=== PATIENT | female | born 2000 | race Caucasian/White ===

== ENCOUNTER 2018-01-08 10:00 | Emergency (ER) | payer BC ==
[2018-01-08 10:18] VITALS: BP 111/66
--- NOTE | 2018-01-08 10:24 | ED ---
Throat Pain/Nasal Congestion - HPI Summary HPI Summary: 17F presents with sinus congestion for the past week. She states she has an increase in sinus pressure. She admits to a sore throat. She states her glands feel swollen. She denies any cough. She denies any chest pain or shortness breath. Denies abdominal pain nausea vomiting diarrhea. She does not have a history of sinus infections. She does not have a history of allergies. She has tried Sudafed for her symptoms. She has no medical conditions. - History of Current Complaint Chief Complaint: UCRespiratory Time Seen by Provider: 01/08/18 10:09 - Allergies/Home Medications Allergies/Adverse Reactions: Allergies Allergy/AdvReac Type Severity Reaction Status Date / Time amoxicillin Allergy Severe Hives Verified 01/08/18 10:11 Home Medications: Home Medications Cetirizine HCl [Zyrtec] 10 mg PO DAILY 01/08/18 [History Confirmed 01/08/18] Desogestrel-Ethinyl Estradiol [Juleber 0.15-30 mg-Mcg] 1 tab PO DAILY 01/08/18 [ History Confirmed 01/08/18] PMH/Surg Hx/FS Hx/Imm Hx Endocrine/Hematology History: Denies: Hx Anticoagulant Therapy Cardiovascular History: Denies: Hx Congestive Heart Failure, Hx Hypertension, Hx Pacemaker/ICD, Other Cardiovascular Problems/Disorders Respiratory History: Denies: Hx Asthma, Hx Chronic Obstructive Pulmonary Disease (COPD), Other Respiratory Problems/Disorders - Surgical History Surgery Procedure, Year, and Place: [place] Infectious Disease History: No Infectious Disease History: Denies: History Other Infectious Disease, Traveled Outside the in Last 30 Days - Family History Known Family History: Negative: Respiratory Disease - Social History Alcohol Use: Weekly Substance Use Type: Reports: Marijuana Hx Tobacco Use: No Smoking Status (MU): Never Smoked Tobacco Type: eCigarettes Review of Systems Negative: Fever Positive: Sore Throat, Nasal Discharge Negative: Chest Pain Negative: Shortness Of Breath, Cough Positive: Headache All Other Systems Reviewed And Are Negative: Yes Physical Exam Triage Information Reviewed: Yes Vital Signs On Initial Exam: Initial Vitals Temp Pulse Resp BP Pulse Ox 97.7 F 90 18 111/66 98 01/08/18 10:12 01/08/18 10:12 01/08/18 10:12 01/08/18 10:12 01/08/18 10:12 Vital Signs Reviewed: Yes Appearance: Positive: Well-Appearing Skin: Positive: Warm, Dry Head/Face: Positive: Normal Head/Face Inspection Eyes: Positive: Normal, EOMI, JUMA, Conjunctiva Clear ENT: Positive: Pharynx normal, TMs normal, Sinus tenderness Neck: Positive: Supple, Nontender, No Lymphadenopathy Respiratory/Lung Sounds: Positive: Clear to Auscultation, Breath Sounds Present Cardiovascular: Positive: Normal, RRR Abdomen Description: Positive: Nontender, Soft Bowel Sounds: Positive: Present Musculoskeletal: Positive: Normal Neurological: Positive: Normal Psychiatric: Positive: Normal Diagnostics - Vital Signs Vital Signs Temp Pulse Resp BP Pulse Ox 01/08/18 10:12 97.7 F 90 18 111/66 98 - Laboratory Lab Statement: Any lab studies that have been ordered have been reviewed, and results considered in the medical decision making process. EENT Course/Dx - Course Course Of Treatment: 17F presents with sinus congestion for the past week. She states she has an increase in sinus pressure. She admits to a sore throat. She states her glands feel swollen. She denies any cough. She denies any chest pain or shortness breath. Denies abdominal pain nausea vomiting diarrhea. She does not have a history of sinus infections. She does not have a history of allergies. She has tried Sudafed for her symptoms. She has no medical conditions. On exam pharynx cobblestoning. No sinus tenderness present. Lungs clear to auscultation. Will treat her sinus infection with doxy due to allergy to penicillin. We'll prescribe Flonase. Patient understands agrees with plan. - Differential Diagnoses Differential Diagnoses: Pharyngitis, Sinusitis, URI/Bronchitis - Diagnoses Provider Diagnoses: Sinusitis Discharge - Sign-Out/Discharge Documenting (check all that apply): Discharge/Admit/Transfer - Discharge Plan Condition: Good Disposition: HOME Prescriptions: DOXYcycline CAP(*) [DOXYcycline 100MG CAP(*)] 100 mg PO BID #10 cap Fluticasone NASAL SPRAY 50MCG* [Flonase NASAL SPRAY 50MCG*] 2 spray BOTH NARES DAILY #1 btl Patient Education Materials: Sinusitis (ED) Referrals: [facility] [Outside] Additional Instructions: Use saline spray in nose as much as needed take antibiotic twice a day for 5 days, use sunscreen, can take with food Use intranasal steroid one spray each nostril twice a day Take Tylenol or ibuprofen for headache every 6 hours Take sudafed daily for nasal congestion Establish care with primary Return to ED if develop any new or worsening symptoms - Billing Disposition and Condition Condition: GOOD Disposition: HOME
== END 2018-01-08 10:45 | disposition home or self-care (01) ==
LOC: UCEAST 10:00
DX: J32.9 Chronic sinusitis, unspecified (principal); J02.9 Acute pharyngitis, unspecified; Z88.0 Allergy status to penicillin
CPT/HCPCS: 99202; G0463

== ENCOUNTER 2018-03-10 19:01 | Emergency (ER) | payer BC ==
--- NOTE | 2018-03-10 19:03 | UC ---
Throat Pain/Nasal Baldomero HPI - HPI Summary HPI Summary: 17 yo female presents with sore throat, headache, and swollen tonsils since yesterday. Today is much worse. Has felt feverish, but has not taken her temperature. Has been taking ibuprofen with mild relief. She is able to eat and drink, but has significant pain. No difficulties breathing. Denies sinus symptoms, cough, SOB, chest pain, n/v, or rash. - History of Current Complaint Stated Complaint: THROAT PAIN Time Seen by Provider: 03/10/18 19:03 Hx Obtained From: Patient Hx Last Menstrual Period: 1 week ago Onset/Duration: Sudden Onset Severity: Moderate Pain Intensity: 9 Pain Scale Used: 0-10 Numeric - Allergies/Home Medications Allergies/Adverse Reactions: Allergies Allergy/AdvReac Type Severity Reaction Status Date / Time amoxicillin Allergy Severe Hives Verified 01/14/18 14:19 Home Medications: Home Medications Ibuprofen [Advil Liqui-Gels] 03/10/18 [History] PMH/Surg Hx/FS Hx/Imm Hx - Additional Past Medical History Additional PMH: Seasonal allergies Previously Healthy: Yes Other History Of: Negative For: Anticoagulant Therapy - Surgical History Surgical History: Yes Surgery Procedure, Year, and Place: wisdom TEETH - Family History Known Family History: Positive: None Negative: Respiratory Disease - Social History Occupation: Student Lives: With Family Alcohol Use: Weekly Substance Use Type: Marijuana Smoking Status (MU): Never Smoked Tobacco Type: eCigarettes - Immunization History Most Recent Influenza Vaccination: 2013 Most Recent Tetanus Shot: up to date Vaccination Up to Date: Yes Review of Systems Constitutional: Fever Skin: Negative Eyes: Negative ENT: Sore Throat Respiratory: Negative Cardiovascular: Negative Gastrointestinal: Negative Neurovascular: Negative Musculoskeletal: Negative Neurological: Headache Psychological: Negative All Other Systems Reviewed And Are Negative: Yes Physical Exam - Summary Physical Exam Summary: GENERAL: NAD. WDWN. No pain distress. SKIN: No rashes, sores, lesions, or open wounds. HEENT: Head: AT/NC Eyes: Conjunctiva clear without inflammation or discharge. Ears: Hearing grossly normal. TMs intact, no bulging, erythema, or edema. Nose: Nasal mucosa pink and moist. NTTP maxillary and frontal sinus. Throat: Posterior oropharynx mild erythema and 3+ tonsillar enlargement. Mild exudates. Uvula midline. No hoarse voice or muffled voice. NECK: Supple. TTP tonsillar LAD. CHEST: CTAB. No r/r/w. No accessory muscle use. Breathing comfortably and in no distress. CV: RRR. Without m/r/g. Pulses intact. Brisk cap refill. NEURO: Alert. CN II-XII grossly intact. PSYCH: Age appropriate behavior. Triage Information Reviewed: Yes Vital Signs: Vital Signs: Temp Pulse Resp BP Pulse Ox 99.6 F 116 16 124/68 100 03/10/18 19:07 03/10/18 19:07 03/10/18 19:07 03/10/18 19:07 03/10/18 19:07 Laboratory Tests 03/10/18 19:18 Group A Strep Rapid Negative Vital Signs Reviewed: Yes Throat Pain/Nasal Course/Dx - Course Course Of Treatment: Strep test negative. Suspect tonsillitis. She was given her first dose of azithromycin in the clinic along with decadron 4mg due to tonsil edema. - Differential Dx/Diagnosis Provider Diagnoses: Tonsillitis Discharge - Sign-Out/Discharge Documenting (check all that apply): Patient Departure - Discharge Plan Condition: Stable Disposition: HOME Prescriptions: Azithromycin TAB* [Zithromax TAB (Z-DHRUV) 250 mg #6 tabs] 2 tab PO .TODAY, THEN 1 DAILY #1 dhruv Lidocaine 2% VISCOUS* [Xylocaine 2% Viscous*] 15 ml SWISH SWAL Q8H PRN #225 ml PRN Reason: Pain predniSONE TAB* [Deltasone 20 MG TAB*] 20 mg PO BID #10 tab Patient Education Materials: Tonsillitis (ED) Referrals: Julia Cox NP [Primary Care Provider] - Additional Instructions: If you develop a fever, shortness of breath, chest pain, new or worsening symptoms - please call your PCP or go to the ED. - Billing Disposition and Condition Condition: STABLE Disposition: Home
[2018-03-10 19:14] VITALS: BP 124/68
[2018-03-10] MEDS ORDERED: Dexamethasone TAB* 4 MG PO ONE (19:34)
[2018-03-10] MEDS ORDERED: Azithromycin TAB* 250 MG PO ONE (19:34)
== END 2018-03-10 19:44 | disposition home or self-care (01) ==
LOC: UCEAST 19:01
DX: J03.90 Acute tonsillitis, unspecified (principal); Z88.0 Allergy status to penicillin
CPT/HCPCS: 87651; 99212; A9270-GY; G0463; J8540

== ENCOUNTER 2018-08-19 17:40 | Emergency (ER) | payer BC ==
--- OUTSIDE RECORDS SUMMARY | 2018-08-19 17:45 | XMS REPORT | Continuity of Care Document ---
:2000 External Reference #:[id number] Author Name Julia Cox N.P. Address [address] [place] [id number] Care Team Providers Name Role Phone Julia Cox N.P. Care Team Information [facility] Unavailable Payers Type Date Identification Numbers Payment Provider Subscriber Effective: Policy Number: [id number] [facility] Ppo Xiomara Butler 2016 PayID: [id number] [address] [address] MAR[place] Bunch [phone] Advance Directives Description No Information Available Problems Date Description Provider Status Onset: 03/11/2017 Impacted third molar tooth Julia Cox, N.PYakelin Active Onset: 03/11/2017 Acne Julia Cox N.Dorothy Active Onset: 08/17/2018 Infectious mononucleosis Julia Cox N.PYakelin Active Family History Date Family Member(s) Problem(s) Comments Father Good Health Mother Good Health First Sister juvenile macular degenerative disease Second Sister Good Health Social History Type Date Description Comments Sex Unknown Education Currently working on bachelor's degree [employer] Tobacco Use Start: Unknown Patient has never smoked Allergies, Adverse Reactions, Alerts Date Description Reaction Status Severity Comments 03/11/2017 Penicillin Active Medications Medication Date Status Form Strength Qnty SIG Indications Ordering Provider IUD 08/17/20 Active Kenny 18 Julia, N.P. Minocycline HCL 03/11/20 Hx Capsules 75mg Ashford, 17 - Mashelle, 08/17/20 N.P. 18 Adapalene 03/11/20 Hx Gel 0.1% Ashford, 17 - Mashelle, 08/17/20 N.P. 18 Juleber 03/11/20 Hx Tablets 0.15-30mg-mc Kenny, 17 - g Masronnyle, 08/17/20 N.P. 18 Immunizations CPT Code Status Date Vaccine Lot # [id number] Given 09/04/2017 Influenza Vac, 3 Yrs & Older, Quadrivalent, Split, [id number] Im Use U-Flu Given 07/23/2016 Influenza (Non Billable) Unspecified U-MCV4 Given 05/10/2016 Meningococcal MCV4 (Non Billable) Unspecified U-HPV Given 01/31/2015 HPV (Non Billable) Unspecified U-HPV Given 09/27/2014 HPV (Non Billable) Unspecified U-HPV Given 07/26/2014 HPV (Non Billable) Unspecified 15324 Given 07/26/2014 Varicella (Chicken Pox) Immunization U-HepA Given 06/07/2011 Hepatitis A (Non Billable) Unspecified U-HepA Given 11/16/2010 Hepatitis A (Non Billable) Unspecified U-Menin Given 05/30/2010 Meningococcal (Non Billable) Unspecified 61005 Given 05/30/2010 Tdap (Adacel) Ages 7 And Above Only U-Polio Given 02/07/2004 Polio (Non Billable) Unspecified U-DTaP Given 02/07/2004 DTaP (Non Billable) Unspecified 08206 Given 02/07/2004 MMR Virus Immunization U-DTaP Given 06/30/2000 DTaP (Non Billable) Unspecified U-HIB Given 06/30/2000 Hib (Non Billable) Unspecified U-Polio Given 06/30/2000 Polio (Non Billable) Unspecified 69159 Given 03/27/2000 Varicella (Chicken Pox) Immunization 82897 Given 03/27/2000 MMR Virus Immunization U-HepB Given 12/27/1999 Hepatitis B (Non Billable) Unspecified U-HIB Given 06/12/1999 Hib (Non Billable) Unspecified U-DTaP Given 06/12/1999 DTaP (Non Billable) Unspecified U-Polio Given 04/10/1999 Polio (Non Billable) Unspecified U-HIB Given 04/10/1999 Hib (Non Billable) Unspecified U-DTaP Given 04/10/1999 DTaP (Non Billable) Unspecified U-Rotav Given 02/08/1999 Rotavirus (Non Billable) Unspecified U-Polio Given 02/08/1999 Polio (Non Billable) Unspecified U-HIB Given 02/08/1999 Hib (Non Billable) Unspecified U-HepB Given 02/08/1999 Hepatitis B (Non Billable) Unspecified U-DTaP Given 02/08/1999 DTaP (Non Billable) Unspecified U-HepB Given 1998 Hepatitis B (Non Billable) Unspecified Vital Signs Date Vital Result Comment 08/17/2018 11:03am Body Temperature 97.7 F Weight 143.00 lb Weight Percentile 73rd Heart Rate 70 /min BP Systolic 114 mmHg BP Diastolic 80 mmHg Height 67 inches 5'7" Height Percentile 86 % BMI (Body Mass Index) 22.4 kg/m2 Body Mass Index Percentile 58 % 03/11/2017 8:56am Body Temperature 98.1 F Weight 148.00 lb Weight Percentile 48th Heart Rate 66 /min BP Systolic 115 mmHg BP Diastolic 68 mmHg Height 66.8 inches 5'6.80" Height Percentile 18 % O2 % BldC Oximetry 99 % BMI (Body Mass Index) 23.3 kg/m2 Body Mass Index Percentile 66 % Results Test Date Facility Test Result H/L Range Note CBC with Auto Diff-fcmg 08/17/2018 [facility] WBC 9.4 K/uL 4.1-11.0 1 RBC 4.63 M/uL 4.00-5.40 Hemoglobin 13.9 gm/dL 12.0-16.0 Hematocrit 41.8 % 36.0-47.0 MCV 90.3 fL 80.0-97.0 MCH 30.0 pg 27.0-32.0 MCHC 33.2 g/dL 32.0-36.0 RDW 13.7 % 11.5-14.5 PLT Count 318 K/ul 140-400 MPV 7.9 FL 7.1-10.7 Neutrophil 67.1 % 35.0-75.0 Lymphocyte 23.6 % 16.0-52.0 Monocyte 7.8 % 2.0-10.0 Eosinophil 1.2 % 0.0-5.0 Basophil 0.3 % 0.0-4.0 Abs Neutrophils 6.3 K/uL 2.1-8.0 Abs Lymphocytes 2.2 K/uL 0.8-5.5 Abs Monocytes 0.7 K/uL 0.1-1.0 Abs Eosinophils 0.1 K/uL 0.0-0.5 Abs Basophils 0.0 K/uL 0.0-0.3 Comprehensive Met Panel-[facility]CMG 08/17/2018 [facility] Sodium 144 mmol/L 135- 146 2 Potassium 4.7 mmol/L 3.5-5.2 Chloride# 104 mmol/L 97-110 3 Carbon Dioxide 31 mmol/L 24-34 Glucose 95 mg/dL 70-105 BUN 16 mg/dL 6-26 Creatinine 0.5 mg/dL 0.5-1.4 Calcium 9.8 mg/dL 8.5-10.2 Total Protein 6.5 g/dL 6.0-8.0 Albumin 4.4 g/dL 3.6-4.9 Globulin 2.1 g/dL 2.0-3.5 A/G Ratio 2.1 Ratio 1.0-2.2 Total Bilirubin 0.5 mg/dL 0.1-1.3 Alkaline Phosphatase 71 U/L 24-140 Alt 4 U/L 3-42 Ast 13 U/L 8-42 Krystle Egfr >60 >60 4 Non Krystle Egfr >60 >60 5 Anion Gap 9 mmol/L 5-15 6 Laboratory test finding 08/17/2018 [facility] TSH 1.45 uIU/mL 0.35-4.94 1 This sample is drawn by:DL/CYCLE ANALYST 2 Updated reference range on new analyzer 3 Updated reference range on new analyzer 4 Concerning GFR Guidelines for Americans: Normal function or mild renal disease, if clinically at risk: >/=60 mL/min Moderately decreased: 30-59 Severely decreased: 15-29 Renal failure: <15 5 Concerning GFR Guidelines: Normal function or mild renal disease, if clinically at risk: >/=60 mL/min Moderately decreased: 30-59 Severely decreased: 15-29 Renal failure: <15 Glomerular Filtration Rate (GFR) is estimated based on the MDRD equation, which assumes a steady state for creatinine as recommended by the National Kidney Disease Education Program in conjunction with the National Institutes of Health and the National Kidney Foundation. Clinical conditions in which it may be necessary to measure GFR by using clearance methods include extremes of age and body size, severe malnutrition or obesity, diseases of skeletal muscle, paraplegia or quadriplegia, vegetarian diet, rapidly changing kidney function, and calculation of the dose of potentially toxic drugs that are excreted by the kidneys. 6 Updated Reference Range Procedures Description No Information Available Encounters Type Date Location Provider Dx Diagnosis Office Visit 03/11/2017 Julia Carroll, J30.2 Other seasonal 9:00a N.P. allergic rhinitis L70.0 Acne vulgaris Plan of Treatment 08/17/2018 - Julia Cox, N.P.R53.83 Other fatigueComments:most likely result of lifestylediscussed weight, inactivity, smoking, poor eating habits as contributors to fatiguestart MVI for women, importance of good sleep hygiene reviewedflu lab [id number] Other malaiseComments:flu lab [id number] Acute gastritis without bleedingComments:use zantac OTC and Mylanta prn before ingesting ibuprofen and caffeine at college.AllNew Medication:IUD -
[2018-08-19 17:48] VITALS: BP 110/68
--- NOTE | 2018-08-19 18:21 | UC ---
Throat Pain/Nasal Baldomero HPI - HPI Summary HPI Summary: 17-year-old female presents with onset of sore throat yesterday. States she noticed some white spots to her tonsils. Associated with some mild nasal congestion and postnasal drip. Denies fever, chills, ear pain, dysphasia, cough , chest pain, shortness of breath, abdominal pain, nausea, or vomiting. - History of Current Complaint Chief Complaint: UCGeneralIllness Stated Complaint: SORE THROAT Time Seen by Provider: 08/19/18 18:18 Hx Obtained From: Patient Hx Last Menstrual Period: unknown Pain Intensity: 6 - Allergies/Home Medications Allergies/Adverse Reactions: Allergies Allergy/AdvReac Type Severity Reaction Status Date / Time amoxicillin Allergy Severe Hives Verified 08/19/18 17:48 Home Medications: Home Medications Levonorgestrel (Iud) [Kyleena IUD] 17.5 mcg VAGINAL ONCE 08/19/18 [History Confirmed 08/19/18] PMH/Surg Hx/FS Hx/Imm Hx Previously Healthy: Yes - Denies significant PMH - Surgical History Surgical History: Yes Surgery Procedure, Year, and Place: wisdom TEETH - Family History Known Family History: Positive: Non-Contributory - Social History Occupation: Student Lives: With Family Alcohol Use: Weekly Substance Use Type: Marijuana Smoking Status (MU): Former Smoker Type: eCigarettes - Immunization History Most Recent Influenza Vaccination: 2013 Most Recent Tetanus Shot: up to date Vaccination Up to Date: Yes Review of Systems All Other Systems Reviewed And Are Negative: Yes Constitutional: Negative: Fever, Chills, Fatigue Skin: Negative: Rash Eyes: Negative: Drainage, Eye Redness ENT: Positive: Sore Throat, Sinus Congestion, Other - Post-nasal drip. Negative : Ear Ache, Nasal Discharge, Sinus Pain/Tenderness Respiratory: Negative: Shortness Of Breath, Cough Cardiovascular: Negative: Palpitations, Chest Pain Gastrointestinal: Negative: Abdominal Pain, Vomiting, Nausea Is Patient Immunocompromised?: No Physical Exam - Summary Physical Exam Summary: GENERAL APPEARANCE: Well developed, well nourished, alert and cooperative, and appears to be in no acute distress. EYES: Conjunctiva clear. No discharge. Vision is grossly intact. EARS: External auditory canals and tympanic membranes clear, hearing grossly intact. NOSE: Mild nasal congestion. No nasal discharge. THROAT: Mild pharyngeal erythema. 1+ tonsils without exudate. Oral cavity normal. Teeth and gingiva in good general condition. NECK: Neck supple, non-tender. Anterior cervical lymphadenopathy noted. CARDIAC: Normal S1 and S2. No S3, S4 or murmurs. Rhythm is regular. There is no peripheral edema, cyanosis or pallor. Extremities are warm and well perfused. Capillary refill is less than 2 seconds. LUNGS: Clear to auscultation and percussion without rales, rhonchi, wheezing or diminished breath sounds. ABDOMEN: Positive bowel sounds. Soft, nondistended, nontender. No guarding or rebound. No masses or hepatosplenomegally. MUSKULOSKELETAL: ROM intact to all extremities. No joint erythema or tenderness. Normal muscular development. Normal gait. SKIN: Skin normal color, texture and turgor with no lesions or eruptions. Triage Information Reviewed: Yes Vital Signs: Initial Vital Signs Temp 98.9 F 08/19/18 17:43 Pulse 119 08/19/18 17:43 Resp 18 08/19/18 17:43 BP 110/68 08/19/18 17:43 Pulse Ox 100 08/19/18 17:43 Vital Signs Reviewed: Yes Diagnostics - Laboratory Diagnostic Studies Completed/Ordered: Rapid strep negative. Throat Pain/Nasal Course/Dx - Course Course Of Treatment: 17-year-old female presents with onset of sore throat yesterday. States she noticed some white spots to her tonsils. Associated with some mild nasal congestion and postnasal drip. Denies fever, chills, ear pain, dysphasia, cough, chest pain, shortness of breath, abdominal pain, nausea , or vomiting. Afebrile. She was noted have some tachycardia on her initial vital signs however time of exam heart rate was within normal limits and other vitals were stable. Exam revealed mild nasal congestion, pharyngeal erythema without tonsillar edema or exudate. Rapid strep negative. Recommend some denies treatment for viral pharyngitis. She is to follow-up with her primary care provider in 7 days if symptoms persist. Warning symptoms were reviewed with the patient. She verbalizes understanding and agrees with plan of care. - Differential Dx/Diagnosis Differential Diagnosis/HQI/PQRI: Mononucleosis, Pharyngitis, Tonsillitis, URI Provider Diagnosis: Viral pharyngitis Discharge - Sign-Out/Discharge Documenting (check all that apply): Patient Departure All imaging exams completed and their final reports reviewed: No Studies - Discharge Plan Condition: Stable Disposition: HOME Patient Education Materials: Pharyngitis (ED) Referrals: Julia Cox NP [Primary Care Provider] - 7 Days (If no improvement.) Additional Instructions: Your rapid strep test in the clinic today was negative. Your symptoms are likely from a viral infection. Viral infections do not respond to antibiotics and typically run their course over 7-10 days. Use salt water gargles several times a day for your sore throat. Take acetaminophen (Tylenol) or ibuprofen (Advil, Motrin) according to directions as needed for fever or pain. You may also use Chloraseptic spray or Cepacol lozenges for some temporary pain relief from your sore throat. Follow-up with your primary care provider in 7 days if symptoms persist. Seek immediate medical attention if you have a persistent fever greater than 100.5 F despite taking acetaminophen or ibuprofen, you are unable to swallow, has difficulty breathing, or have any worsening of symptoms. - Billing Disposition and Condition Condition: STABLE Disposition: Home - Attestation Statements Provider Attestation: Per institutional requirements, I have reviewed the chart, however, I was not consulted specifically or made aware of this patient by the midlevel provider. I did not personally evaluate, interact with , or disposition this patient.
== END 2018-08-19 18:34 | disposition home or self-care (01) ==
LOC: UCEAST 17:40
DX: J02.8 Acute pharyngitis due to other specified organisms (principal); Z88.0 Allergy status to penicillin
CPT/HCPCS: 87651; 99211; G0463